=== PATIENT | female | born 1955 | race Caucasian/White ===

== ENCOUNTER 2019-08-31 06:53 | Day surgery (SDC) | payer OTHER ==
[~2019-08-31] VITALS: Ht 165.1 cm; Wt 86.2 kg
[~2019-08-31 06:53] MED LIST: CALCI17 PO; MULTIVITAMIN PO
[2019-08-31 08:29] VITALS: BP 150/88
== END 2019-08-31 08:40 | disposition home or self-care (01) | DRG 951 ==
LOC: ENDO 06:53
PROVIDERS: ATTEND Surgery
PROC: 0DJD8ZZ Inspection of Lower Intestinal Tract, Via Natural or Artificial Opening Endoscopic (ICD-10-PCS; principal; 2019-08-31)
DX: Z12.11 Encounter for screening for malignant neoplasm of colon (principal); Q43.8 Other specified congenital malformations of intestine